=== PATIENT | male | born 1960 | race Caucasian/White ===

== ENCOUNTER 2018-07-13 07:31 | Day surgery (SDC) | payer MEDICAID, SELFPAY ==
--- NOTE | 2018-07-10 10:29 | EKG12_ITS ---
Test Reason : PREOP Blood Pressure : / mmHG Vent. Rate : 071 BPM Atrial Rate : 071 BPM P-R Int : 148 ms QRS Dur : 090 ms QT Int : 394 ms P-R-T Axes : 050 053 036 degrees QTc Int : 428 ms Sinus rhythm with occasional Premature ventricular complexes Otherwise normal ECG Confirmed by YOHAN JOYNER, MANJINDER ([id number]), news copy editor NANCY GUZMAN ([id number]) on 07/13/2018 2:52:45 PM Referred By: Shahid Brown Confirmed By:MANJINDER ALMANZAR MD
[2018-07-10 10:37] LABS: Hematocrit 45.9 % (40-54); Hemoglobin 15.6 g/dl (13.0-16.5); Mean Corpuscular Hgb 31.9 pg (27.0-32.0); Mean Corpuscular Volume 93.9 fL (80-94); Mean Platelet Vol. 10.1 fl (6.2-12.0); Platelet Count 175 K/mm3 (150-450); RBC Distribution Width CV 12.9 % (11.6-14.6); RBC Distribution Width SD 44.5 fl (35.1-43.9); Red Blood Count 4.89 M/mm3 (4.6-6.2); Scan Indicated on CBC? Y/N NO; White Blood Count 4.8 K/mm3 (4.4-11.0)
[2018-07-13] VITALS (7 sets, daily range): BP systolic 112–166; BP diastolic 78–98; PULSE 62–83; RESP 14–17; TEMP 36.8–37; O2SAT 92–97; BMI 31.6
[2018-07-13] MEDS: Cefazolin 2 GM in 0.9% Normal Saline 100 ML IV (08:50)
[2018-07-13] MEDS: Bupivacaine Mpf 0.5% 30 ML VIAL (09:11)
--- NOTE | 2018-07-13 09:59 | PCM.OPRPT ---
Report of Operation Date of Procedure: 07/13/18 Pre-Operative Diagnosis: umbilical hernia Post-Operative Diagnosis: umbilical hernia, weak margin Surgery/Procedure Performed:: umbilical hernia repair with small ventralex mesh Description of Surgical Findings:: as above log operations coordinator: None Type of Anesthesia:: General Specimen's removed: none Estimated Blood Loss (mL): 10 Fluids Replaced: 1100 Description of Procedure: The patient was brought to the operating suite. Sign in was performed verifying patient, site, procedure, position, and DVT prophylaxis with SCDs. Patient received 2 g Ancef antibiotic prophylaxis. Following induction of general anesthetic, the patient?s abdomen was prepped and draped in the usual fashion. Timeout was performed verifying patient, site, position. Local anesthetic was injected . A curvilinear incision was made and dissection carried down to the umbilical root fascia. Dissection was continued around the umbilical root and the umbilical skin was dissected off the hernia sac. An extraperitoneal space was created. The fascia was noted to be weak and therefore mesh was planned to be placed. The hernia sac was opened to clean fascial margin yielding a defect approximately 1-1/2 cm. A preperitoneal space was created sharply and using electrocautery to allow placement of the mesh. The ventralex ST small sized or 4.3 cm mesh was then secured in the preperitoneal space at the outer ring with 4 interrupted 0 Prolene sutures. Then multiple interrupted 0 Prolene sutures were placed at the inner fascial margin to the mesh. The 2 tails were cut to length and secured to the anterior fascia. Following this the umbilical root was tacked back down with a 3-0 Vicryl suture. Subcutaneous fat was closed with interrupted 3-0 Vicryl suture. Skin was closed with a running 4-0 Monocryl subcuticular sutures. Steri-Strips and bandages were applied. The patient was brought to recovery room in stable condition. Grafts/Implants Used: ventralex ST 4.3cm ref [id number] lot [id number] - 02/29/2020 - Admit VTE Documentation VTE Present on Admission: No VTE Mechan Device Prophylaxis: SCD's VTE Pharm Prophylaxis ordered?: No
--- NOTE | 2018-07-13 10:10 | DCINST_ITS ---
Discharge Diet: Light diet - advance as tolerated Discharge Activity: Return to Normal Activity, May Drive - when you are no longer taking narcotic pain medications., May Shower - with the bandage in place 1-2 days after surgery. Lifting Restrictions: 20 pounds for 8 weeks. Additional Activity Instructions:: Climbing stairs is fine, walking is encouraged. Sitting in bed may be uncomfortable. Sitting up using your lateral muscles (sitting up sideways) is usually more comfortable. Do not drive, work heavy equipment of sign legal documents for 24 hours. If your hernia repair was an ingunial repair, you may have scrotal swelling, an ice pack and/or athletic support can provide more comfort. Pain medications may cause nausea, you should typically eat light foods as you take your pain medications. Pain medications may also cause constipation. If you have difficulty with this, discuss with your doctor. Call your doctor if your incision/area has: Continuous Slow Oozing, Sudden Increased Bleeding, Increased Pain/ Swelling, Increased Redness, Foul Smelling Discharge Call your doctor if you observe: Fever of 101 or Higher Suture Line Care: Avoid Pulling/Pushing, Avoid Pinching/Bending Additional Dressing/Incision Instructions:: Leave the operative bandage on for 2-3 days. When you remove the bandage, leave the steri-strips on place until your follow up appointment or they fall off. Allergies/Adverse Reactions: Allergies No Known Allergies Allergy (Verified 07/10/18 08:39) Medications to take at Discharge RX: Aspirin E.C. [Ecotrin] 81 mg PO DAILY 07/10/18 RX: Cholecalciferol (VIT D3) [Vitamin D3] 2,000 unit PO DAILY 07/10/18 Oxycodone HCl/Acetaminophen [Percocet 5/325] 1 tab PO Q6H PRN PRN 7 Days #14 tab 07/13/18 The following prescriptions were given: Oxycodone HCl/Acetaminophen [Percocet 5/325] 1 tab PO Q6H PRN PRN 7 Days #14 tab PRN Reason: Pain Primary Care Physician: Javid Urena III, MD [Primary Care Provider] - Test Results: Test results from this visit will be discussed in further detail at your follow- up appointment, if applicable. Please Follow Up With: Shahid Brown MD - [phone] When: Plan to have a follow up appointment in 7 days. Call to schedule.
== END 2018-07-13 12:48 | disposition home or self-care (01) ==
LOC: SDC 07:31 → AC 07:32
PROVIDERS: Family Provider Family Medicine; PCP Family Medicine; Referring Provider Surgery; Visit Provider Surgery
PROC: (CPT 49585; principal; 2018-07-13 08:45)
DX: K42.9 Umbilical hernia without obstruction or gangrene (principal); E78.5 Hyperlipidemia, unspecified; Z79.82 Long term (current) use of aspirin; Z79.899 Other long term (current) drug therapy; Z87.891 Personal history of nicotine dependence
CPT/HCPCS: 00830; 49585; 36415; 85027; 93005; J7120; C1781; J2405

== ENCOUNTER 2024-01-16 17:28 | Emergency (ER) | payer MEDICAID, SELFPAY ==
[2024-01-16] VITALS (7 sets, daily range): BP systolic 151–200; BP diastolic 84–105; PULSE 63–98; RESP 12–19; TEMP 36.7–36.8; O2SAT 93–96; BMI 29.9
--- NOTE | 2024-01-16 17:32 | EKG12_ITS ---
Test Reason : CP Blood Pressure : / mmHG Vent. Rate : 103 BPM Atrial Rate : 103 BPM P-R Int : 134 ms QRS Dur : 090 ms QT Int : 336 ms P-R-T Axes : 070 073 050 degrees QTc Int : 440 ms Sinus tachycardia Otherwise normal ECG Confirmed by BRUNO JOYNER, ANGELA ([id number]), rewrite editor NITHYA SOUTH ([id number]) on 01/19/2024 9:45:54 AM Referred By: ALIX Confirmed By:LING CARR MD
[2024-01-16] MEDS: Metoprolol Tartrate 5 MG/5 ML Vial IV (17:42)
[2024-01-16] MEDS: Aspirin 81 MG TAB.CHEW 243 MG PO (17:42)
[2024-01-16 17:43] LABS: Absolute Lymphocyte Count 2.64 X10^3/uL (0.83-4.51); Absolute Neutrophil Count 4.3 X10^3/uL (2.0-7.7); Basophil# 0.07 X10^3/uL; Basophil% 0.9 % (0-1); Eosinophil# 0.07 X10^3/uL; Eosinophils% 0.9 % (0-5); Hematocrit 48.9 % (40-54); Lymphocyte # 2.64 X10^3/ul (0.83-4.51); Lymphocyte % 32.8 % (19-41); Mean Corp Hgb Conc 34.8 g/dL (32-36); Mean Corpuscular Hgb 32.8 pg (27.0-32.0); Mean Corpuscular Volume 94.2 fL (80-94); Monocyte# 0.96 X10^3/uL; Monocyte% 11.9 % (0-10); NRBC Flagged by Analyzer 0 % (0-5); Neutrophil # 4.29 X10^3/uL (2.7-7.7); Neutrophil % 53.1 % (47-70); Platelet Count 193 K/mm3 (150-450); RBC Distribution Width CV 12.8 % (11.6-14.6); RBC Distribution Width SD 44.5 fl (35.1-43.9); Red Blood Count 5.19 M/mm3 (4.6-6.2); White Blood Count 8.1 K/mm3 (4.4-11.0)
--- NOTE | 2024-01-16 17:49 | RAD_ITS ---
INDICATION: Chest pain EXAMINATION/TECHNIQUE: X-RAY - portable upright AP chest x-ray COMPARISON: None. FINDINGS: LINES/DEVICES: None. LUNGS: No consolidation, edema or effusion. No pneumothorax. MEDIASTINUM AND CARDIOVASCULAR STRUCTURES: Cardiac silhouette not enlarged. Central airways and mediastinal contour are unremarkable. BONES AND SOFT TISSUES: Unremarkable. RAD/Chest 1 View (Portable) IMPRESSION: No radiographic evidence of acute cardiopulmonary disease. Electronically Signed: Garrett Varghese MD at 18:23 EDT ,
--- NOTE | 2024-01-16 17:55 | EDS_ITS ---
HPI History of Present Illness Chief Complaint: Chest Pain Detail of Chief Complaint: Tingling in arms, chest pain Informant: patient Onset/Context/Timing Onset: Weeks Narrative Narrative: Patient presents secondary to chest pain as well as tingling in his upper extremities. He reports having tingling in his hands and wrist for the past several weeks. He feels that it is moving up his arms and is now having pain with some tingling sensation in his chest for the past several days. He has occasional shortness of breath. He will have occasional dizzy spells but does not feel as if he is going to pass out. He takes a baby aspirin daily but has not seen a doctor in several years. He believes last time his blood pressure was checked was probably 5 or 6 years ago when he had a hernia surgery. Patient is a smoker. He has family history of cardiac disease in both his father and his brothers. [facility] Medical History no medical history no medical history Home Medications ?Medication ?Instructions ?Recorded ?Last Taken ?Type aspirin 81 mg tablet,delayed 81 mg PO DAILY HEART HE[facility] 07/10/18 01/15/24 History release metoprolol succinate 25 mg 25 mg PO DAILY #30 tabs 01/16/24 Unknown Rx tablet,extended release 24 hr Allergy/AdvReac Type Severity Reaction Status Date / Time No Known Allergies Allergy Verified 01/16/24 17:32 Social History Smoking Status: Former smoker ROS ROS ED Constitutional Constitutional ED: Denies chills or fever(s) Eyes Eyes: Denies change in vision ENT ENT ED: Denies rhinorrhea or sore throat Cardiovascular Cardiovascular: Reports chest pain; Denies palpitations Respiratory/Chest Respiratory/Chest: Reports dyspnea; Denies cough Gastrointestinal Gastrointestinal: Denies abdominal pain, nausea or vomiting Musculoskeletal Musculoskeletal: Reports extremity pain; Denies back pain Integumentary Denies Abrasions or rash Neurologic Neurologic: Reports paresthesias; Denies headache(s) or weakness Psychiatric Psychiatric: Denies anxiety or depression Allergic/Immunologic Allergic/Immunologic ED: Denies lip swelling or urticaria EXAM Physical Exam Const Vital Signs: 01/16/24 17:28 01/16/24 17:29 01/16/24 18:28 Temperature 98.3 F Temperature Source Oral Pulse Rate 98 72 Respiratory Rate 15 17 Respiratory Effort Normal Blood Pressure 200/105 H 151/84 H Blood Pressure Mean 136 106 Pulse Ox 96 94 Oxygen Delivery Method Room Air Room Air 01/16/24 19:00 01/16/24 19:07 01/16/24 19:19 Temperature 98.1 F Temperature Source Temporal Pulse Rate 80 70 72 Respiratory Rate 15 Respiratory Effort Blood Pressure 156/86 H 181/91 H 168/87 H Blood Pressure Mean 109 121 114 Pulse Ox 96 Oxygen Delivery Method Room Air 01/16/24 20:00 Temperature 98.1 F Temperature Source Temporal Pulse Rate 65 Respiratory Rate 19 H Respiratory Effort Blood Pressure 157/98 H Blood Pressure Mean 117 Pulse Ox 93 Oxygen Delivery Method Nasal Cannula Positive well nourished and well developed General Appearance ED: well developed HEENT Reports moist mucous membranes Eyes EOMs intact bilaterally Chest Wall inspection of chest normal and palpation of chest normal Resp normal respiratory effort and clear to auscultation bilaterally Cardio regular rate and regular rhythm GI non-tender Palpation: soft Extremity normal to inspection Neuro oriented x3 and no sensory deficits noted Motor Exam: strength 5/5 throughout Psych Mood & Affect: anxious Skin no rashes or lesions noted MDM MDM MDM Narrative Medical decision making narrative: Patient placed on bus monitor. Blood pressure noted to be elevated at 200/105. IV line initiated. EKG obtained to evaluate for cardiac arrhythmia/ischemia. Chest x-ray obtained to evaluate for acute lung pathology, cardiac size, or mediastinal abnormality. Labwork obtained to evaluate for leukocytosis, anemia, and electrolyte derangement. Patient given 5 mg of IV labetalol and vital signs observed. History & Record Review Discussion w/independent historian: Patient Lab Data Attestation: I reviewed the patient's lab results. Labs: Laboratory Results - last 24 hr 01/16/24 01/16/24 17:35 19:53 WBC 8.1 RBC 5.19 Hgb 17.0 H Hct 48.9 MCV 94.2 H MCH 32.8 H MCHC 34.8 RDW Std Deviation 44.5 H RDW Coeff of Rosina 12.8 Plt Count 193 MPV 10.0 Immature Gran % (Auto) 0.400 Neut % (Auto) 53.1 Lymph % (Auto) 32.8 Ponce % (Auto) 11.9 H Eos % (Auto) 0.9 Baso % (Auto) 0.9 Absolute Neuts (auto) 4.3 Absolute Lymphs (auto) 2.64 Nucleated RBC % 0 Sodium 140 Potassium 3.7 Chloride 108 H Carbon Dioxide 22.0 Anion Gap 10 BUN 22 H Creatinine 1.26 Estim Creat Clear Calc 63.95 Est GFR (MDRD) Af Amer 74 Est GFR (MDRD) Non-Af 62 BUN/Creatinine Ratio 17.5 Glucose 125 H Calcium 8.9 Total Bilirubin 0.70 Direct Bilirubin 0.14 AST 24 ALT 53 Alkaline Phosphatase 78 Troponin I High Sens < 3 L 5 Total Protein 7.2 Albumin 3.9 Globulin 3.3 Radiography Chest X-Ray - ED: 1 View, Read by ED Physician, Normal, Heart, Lungs and Mediastinum Diagnostic Testing: Clinical Impression(s) from Imaging Studies Chest X-Ray 01/16/24 17:49 IMPRESSION: No radiographic evidence of acute cardiopulmonary disease. Electronically Signed: Garrett Varghese MD at 18:23 EDT Reading Location ID and State: [facility], [facility]–1983 / [place] Tel , Service support , EKG Initial EKG: Attestation: I personally reviewed and interpreted this EKG as follows: Interpretation: Sinus Tachycardia (Sinus tach at 103. No evidence of acute ischemia.) Treatment and Re-Evaluation :: CBC reveals normal white count 8.1 with a hemoglobin concentrated at 17. Chemistry studies reveal a BUN of 22 and a creatinine 1.26. Do not have any prior values available for comparison. Glucose is 125. LFTs are normal. Initial troponin is less than 3 and repeat troponin is 5. Portable chest x-ray per my interpretation reveals no acute findings. Radiology interpretation reviewed and agrees. EKG is sinus tach at 103. Patient did receive aspirin here along with 5 mg of IV metoprolol. Systolic blood pressure has been in the 150s and heart rate is now in the 70s. Patient does not have an established primary care physician. He will be referred to Dr. Bernardo who is next on the no doc list. He will picker an automated blood pressure cuff at the store tomorrow. I will write him a prescription for metoprolol. If his systolic blood pressure is greater than 160 he is to take metoprolol. He is to keep a journal of his blood pressure readings to take to his first doctor's appointment. Return instructions were also provided. Discharge Plan Triage Chief Complaint: Chest Pain ED Provider: Magdalena Saucedo Dx/Rx/DC Orders Clinical Impression: Hypertension, Chest pain Instructions: ED Chest Pain, Uncertain Cause, ED Hypertension New Begin Treatment Prescriptions: New metoprolol succinate 25 mg tablet extended release 24 hr 25 mg PO DAILY Qty: 30 0RF No Action aspirin 81 MG tablet 81 mg PO DAILY Primary Care Provider: Care Physician,No Primary Referrals: Josselin Bernardo DO [Med Staff - Active Staff] - 1-2 Weeks Care Physician,No Primary [Primary Care Provider] - Activity Restrictions/Additional Instructions: Please get a blood pressure cuff and check your blood pressure regularly. Please keep a journal of your readings. If your systolic blood pressure (top number) is over 160, please take the metoprolol that you are prescribed to help control your blood pressure. Please document how often you need this medication to control your blood pressure and take it to your next doctor's appointment. You have been referred to Dr. Bernardo and her information is been provided for you. You can follow-up with any local physician. Print Language: Greenlandic Disposition Disposition: Home, Self Care
[2024-01-16 18:10] LABS: AST(SGOT) 24 U/L (15-37); Alanine Aminotransfer ALT/SGPT 53 U/L (16-61); Albumin, Serum 3.9 g/dL (3.2-5.0); Alkaline Phosphatase 78 U/L (45-117); Anion Gap 10 (5-15); BUN 22 mg/dL (7-18); BUN/Creat Ratio 17.5 RATIO (10-20); Bilirubin, Direct 0.14 mg/dL (0.00-0.30); Calcium,Total 8.9 mg/dL (8.5-10.1); Chloride 108 mmol/L (98-107); Creatinine, Serum 1.26 mg/dL (0.70-1.30); EST Glomerular Filtration Rate 62 mL/min (>60); Est Glom Filt Rate - Afr Amer 74 mL/min (>60); Estimated Creatinine Clearance 63.95 ml/min; Globulin 3.3 g/dL (2.2-4.2); Glucose 125 mg/dL (74-106); Potassium 3.7 mmol/L (3.5-5.1); Protein, Total 7.2 g/dL (6.4-8.2); Sodium Level 140 mmol/L (136-145); Troponin-I HS (w/2H Reflex) < 3 pg/mL (3.0-78.0)
[2024-01-16 19:39] LABS: Reflex Troponin-HS? (from REC) Y
[2024-01-16 20:16] LABS: Troponin-I HS 5 pg/mL (3.0-78.0)
== END 2024-01-16 20:41 | disposition home or self-care (01) ==
PROVIDERS: Emergency Provider Emergency Medicine; Visit Provider Emergency Medicine
DX: I10 Essential (primary) hypertension (principal); R07.9 Chest pain, unspecified; Z87.891 Personal history of nicotine dependence; Z79.82 Long term (current) use of aspirin
CPT/HCPCS: 71045; 80048; 80076; 84484; 85025; 93005; 96374; 99284; A4216